=== PATIENT | male | born 1950 | race Caucasian/White ===

== ENCOUNTER → 2018-11-08 07:58 | Outpatient (BNVA) | payer MEDICARE, SELFPAY | PROVIDERS: PCP Internal Medicine; Visit Provider Urology | DX: N50.811 Right testicular pain (principal) | CPT/HCPCS: 99213 ==

== ENCOUNTER 2019-12-20 13:02 | Outpatient (REF) | payer MEDICARE, SELFPAY ==
[2019-12-22 09:17] LABS: PSA, Screening 1.3 ng/mL (0.0-4.5)
== END 2019-12-20 13:22 ==
LOC: NCHCN 13:02
PROVIDERS: PCP Internal Medicine; Visit Provider Internal Medicine
DX: Z12.5 Encounter for screening for malignant neoplasm of prostate (principal)
CPT/HCPCS: 84153

== ENCOUNTER 2020-10-05 15:25 | Outpatient (REF) | payer MEDICARE, SELFPAY ==
[2020-10-08 10:53] LABS: Lyme Ab w Rflx to Lyme Confirm Negative (Negative)
[2020-10-08 21:02] LABS: Anaplasma phagocytophilum Negative (Negative); B. miyamotoi PCR Negative (Negative); Babesia divergens/MO-1 Negative (Negative); Babesia duncani Negative (Negative); Babesia microti Negative (Negative); Ehrlichia chaffeensis Negative (Negative); Ehrlichia ewingii/canis Negative (Negative); Ehrlichia muris eauclairensis Negative (Negative)
== END 2020-10-05 15:26 | disposition home or self-care (01) ==
LOC: NCHCN 15:25
PROVIDERS: PCP Internal Medicine; Visit Provider Family Medicine
DX: W57.XXXA Bitten or stung by nonvenomous insect and other nonvenomous arthropods, initial encounter (principal); T14.8XXA Other injury of unspecified body region, initial encounter
CPT/HCPCS: 87798; 86618

== ENCOUNTER 2022-10-23 10:10 | Outpatient (REF) | payer MEDICARE, SELFPAY ==
--- NOTE | 2022-10-23 08:30 | SKI_PTH ---
PATIENT: Bob Mello LOC: [facility]#:[id number] AGE/SX: 72/M ROOM: RE10/23/[address]: Daniel Urena : 1950 BED: DIS: 10/23/2022 SPEC #: [id number] RECD: 10/23/22 16:50 STATUS: DONOVAN REQ #: [id number] REJI: 10/23/22 08:[address]: Daniel Urena DEPT: Surgical Specimen RECD BY: Deidre Monroe ENTERED: 10/23/22 16:51 SP TYPE: SKI OTHR DR: Dez Colin Tissues: 1 - SKIN BIOPSY(SHAVE/PUNCH) Procedures: SKIN LEVEL 4 Comments: [id number]
[2022-10-23 15:32] LABS: HCT 46.5 % (40.0-50.0); HGB 15.6 g/dL (13.5-17.5); MCH 31.1 pg (27.0-33.0); MCHC 33.5 % (32.0-36.0); MCV 93 fL (80-95); MPV 9.5 fL (8.0-11.0); Platelet Count 321 10^3/uL (130-400); RBC 5.01 10^6/uL (4.36-5.78); RDW-SD 44.1 fL; WBC 6.41 10^3/uL (4.4-10.8)
[2022-10-23 15:37] LABS: BUN 25 mg/dL (7-18); Calcium 9.2 mg/dL (8.5-10.1); Chloride 104 mmol/L (98-107); Estimated GFR 80.97 (mL/min/1.73m2); Glucose 100 mg/dL (74-106); Potassium 4.9 mmol/L (3.5-5.1); Sodium 139 mmol/L (136-145)
[2022-10-23 16:06] LABS: Hemoglobin A1C 5.6 % (<5.7)
== END 2022-10-23 10:11 | disposition home or self-care (01) ==
LOC: NCHCN 10:10
PROVIDERS: PCP Internal Medicine; Visit Provider Family Medicine
DX: Z00.00 Encounter for general adult medical examination without abnormal findings (principal); L57.0 Actinic keratosis
CPT/HCPCS: 80048; 85027; 83036; 88305

== ENCOUNTER → 2023-11-05 03:00 | Outpatient (CLI) | payer MEDICARE, SELFPAY ==
--- NOTE | 2023-11-05 | DI.RAD_ITS ---
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 TECHNIQUE: 2D digital imaging was performed. COMPARISON: No exams were available for comparison FINDINGS: Five views. No evidence of fracture, listhesis, nor offset of the spinal laminar line. There is multilevel disc space narrowing. There also appears to be fusion across C2-C3 level. Multi level facet arthrosis. Luschka joint osteophytes noted at C5-6 level, larger on the right than left. There are no cervical ribs. IMPRESSION: Multilevel chronic degenerative disc disease and facet arthropathy. No fractures evident. DATA REPOSITORY: RADIATION DOSE DELIVERED:
== END ==
PROVIDERS: PCP Internal Medicine; Visit Provider Family Medicine
DX: M50.122 Cervical disc disorder at C5-C6 level with radiculopathy (principal)
CPT/HCPCS: 72050

== ENCOUNTER 2024-06-30 02:49 | Outpatient (CLI) | payer MEDICARE, SELFPAY ==
--- NOTE | 2024-06-30 | DI.MRI_ITS ---
Exam(s) MR CERVICAL SPINE WO EXAM: MR CERVICAL SPINE WO CLINICAL HISTORY: Cervicalgia, M54.2 TECHNIQUE: Multiplanar multisequence MRI of the cervical spine was performed without intravenous con trast. COMPARISON: CR XR CERVICAL SPINE COMP 4-5V from 11/05/2023 FINDINGS: BONES: There are arthritic changes seen at the C1-C2 level causing mild narrowing of the central spin al canal. Multilevel degenerative changes are present throughout the cervical spine. The findings a re most marked at C4-5 through C6-C7. Alignment is normal. Bone marrow signal intensity is within nor mal limits. CERVICAL CORD: Craniovertebral junction is unremarkable. The cervical cord is normal size and signal intensity. SOFT TISSUES: There is a heterogeneous left lobe of the thyroid gland. There is a question of a 2.6 cm heterogeneous nodule in the left lobe. Nonemergent thyroid ultrasound is recommended for further evaluation. C2-3: No disc herniation or bulge is identified. No significant central spinal canal or neural forami nal stenosis. C3-4: There is mild prominence of the osteophyte disc complex at this level. There is a small centra l disc herniation no significant central spinal canal stenosis is seen. Degenerative changes of the facets are seen. No significant neural foraminal stenosis is present. C4-5: No disc herniation or bulge is identified. No significant central spinal canal or neural forami nal stenosis there are degenerative changes of the facets particularly on the left. C5-6: There is prominence of the osteophyte disc complex causing mild narrowing of the central spinal canal. Uncovertebral joint and facet arthropathy is present. This results in marked bilateral neur al foraminal stenosis. C6-7: There is mild prominence of the osteophyte disc complex. No significant narrowing of the centr al spinal canal is seen. There are degenerative changes of the facets seen bilaterally. The finding s result in moderate right and moderately severe left neural foraminal stenosis. C7-T1: No disc herniation or bulge is identified. No significant central spinal canal or neural valerie inal stenosis IMPRESSION: 1. Multilevel arthrosis of the cervical spine resulting in central spinal canal or neural foraminal s tenosis as described above. The findings are most marked at C5-6 and C6-C7. 2. Question of a 2.6 cm heterogeneous left thyroid nodule. Nonemergent thyroid ultrasound is recomme nded for further evaluation. Unexpected findings DATA REPOSITORY:
== END 2024-06-30 03:09 ==
LOC: DI 02:49
PROVIDERS: PCP Family Medicine; Visit Provider Family Medicine
DX: M48.062 Spinal stenosis, lumbar region with neurogenic claudication (principal)
CPT/HCPCS: 72141

== ENCOUNTER 2024-07-11 01:24 | Outpatient (CLI) | payer MEDICARE, SELFPAY ==
--- NOTE | 2024-07-11 | DI.US_ITS ---
Exam(s) US THYROID EXAM: US THYROID CLINICAL HISTORY: NONTOXIC SINGLE THYROID NODULE E04.1. TECHNIQUE: Ultrasound thyroid performed using standard protocol. COMPARISON: No exams were available for comparison FINDINGS: RIGHT THYROID LOBE: Measures 2.1 cm AP x 1.6 cm wide x 4.1 cm craniocaudal No significant nodules in the right lobe Nodule #2 Size: Measures cm Composition: Mixed cystic-solid- 1 point Echogenicity: Hypoechoic- 2 points Shape: Wider ISTHMUS: Normal thickness. There are no nodules in the isthmus. LEFT THYROID LOBE: Measures 3.8 cm AP x 2.0 wide x 4.5 cm craniocaudal Contains a solid nodule with characteristics as follows: Size: Nodule measures 3.7 x 3.6 x 2 cm Composition: Solid-2 points Echogenicity: Mildly hypoechoic-2 points Shape: Taller than wider in the transverse plane-3 points Margin: Irregular-2 points Echogenic Foci: Macro calcification-1 points Total points for this nodule: 10 ACR Ti-Rads Category: 5 Will require FNA LYMPH NODES: There is no significant adenopathy. IMPRESSION: 1. There is a solid 3.7 x 3.6 x 2 cm nodule in the right thyroid lobe as described above which is a T R 5 level nodule and ridge requires ultrasound-guided FNA. 2. No significant lymphadenopathy DATA REPOSITORY:
== END 2024-07-11 01:44 ==
LOC: DI 01:25
PROVIDERS: PCP Family Medicine; Visit Provider Family Medicine
DX: E04.1 Nontoxic single thyroid nodule (principal)
CPT/HCPCS: 76536

== ENCOUNTER 2024-11-07 12:11 | Outpatient (REF) | payer MEDICARE, SELFPAY ==
[2024-11-07 16:23] LABS: Anion Gap 7.5 mmol/L (3-11); BUN 27 mg/dL (7-18); CO2 26.5 mmol/L (21.0-32.0); CREATININE 1.1 mg/dL (0.70-1.30); Calcium 9.3 mg/dL (8.5-10.1); Chloride 105 mmol/L (98-107); Estimated GFR 71.32 (mL/min/1.73m2); Glucose 102 mg/dL (74-106); LDL CHOLESTEROL 131 mg/dL (<100); Potassium 4.8 mmol/L (3.5-5.1); Sodium 139 mmol/L (136-145)
== END 2024-11-07 12:12 | disposition home or self-care (01) ==
LOC: NCHCN 12:11
PROVIDERS: PCP Family Medicine; Visit Provider Family Medicine
DX: Z00.00 Encounter for general adult medical examination without abnormal findings (principal); K29.70 Gastritis, unspecified, without bleeding
CPT/HCPCS: 80048; 83721

== ENCOUNTER 2025-01-24 01:58 | Outpatient (CLI) | payer MEDICARE, SELFPAY ==
--- NOTE | 2025-01-24 | DI.US_ITS ---
Exam(s) US THYROID EXAM: US THYROID CLINICAL HISTORY: THYROID NODULE, E04.1. TECHNIQUE: Ultrasound thyroid performed using standard protocol. COMPARISON: US US THYROID from 07/11/2024 FINDINGS: ISTHMUS: 3.6 mm RIGHT LOBE: Size: 5.4 x 2.8 x 2.0 cm Echogenicity: Normal. Vascularity: Normal. Nodules: There are no nodule seen on the right to warrant FNA or follow-up. LEFT LOBE: Size: 6.7 x 4.6 x 2.3 cm Echogenicity: Normal. Vascularity: Normal. Nodules: There is again seen a solid isoechoic nodule in the inferior left lobe. It measures 4.1 x 3.8 x 2.4 cm. This compares to 3.7 x 3.6 x 2.1 cm on the prior examination. It is taller than wide. The margins are irregular. A macrocalcification is present. This remains a TI rads level 5 nodule. Per the patient, this nodule has already been biopsied. OTHER FINDINGS: None. IMPRESSION: Stable nodule in the left lobe. Per the patient, this nodule has been biopsied previously. DATA REPOSITORY:
== END 2025-01-24 02:18 ==
LOC: DI 01:58
PROVIDERS: PCP Family Medicine; Visit Provider Family Medicine
DX: E04.1 Nontoxic single thyroid nodule (principal)
CPT/HCPCS: 76536

== ENCOUNTER 2025-03-13 14:42 | Outpatient (REF) | payer MEDICARE, SELFPAY ==
[2025-03-13 14:51] LABS: Abs Immature Grans 0.03 10^3/uL (0.0-0.06); HCT 43.2 % (40.0-50.0); HGB 14.4 g/dL (13.5-17.5); Immature Grans % 0.4 %; MCH 30.8 pg (27.0-33.0); MCHC 33.3 % (32.0-36.0); MCV 93 fL (80-95); MPV 9.5 fL (8.0-11.0); Platelet Count 305 10^3/uL (130-400); RBC 4.67 10^6/uL (4.36-5.78); RDW 12.3 % (11.8-14.1); RDW-SD 41.8 fL; WBC 6.78 10^3/uL (4.4-10.8)
[2025-03-13 15:09] LABS: Anion Gap 7.0 mmol/L (3-11); BUN 25 mg/dL (7-18); CO2 26.0 mmol/L (21.0-32.0); Calcium 9.7 mg/dL (8.5-10.1); Chloride 106 mmol/L (98-107); Estimated GFR 93.45 (mL/min/1.73m2); Glucose 114 mg/dL (74-106); Potassium 4.2 mmol/L (3.5-5.1); Sodium 139 mmol/L (136-145)
== END 2025-03-13 14:43 | disposition home or self-care (01) ==
LOC: NCHCN 14:42
PROVIDERS: PCP Family Medicine; Visit Provider Family Medicine
DX: Z79.899 Other long term (current) drug therapy (principal)
CPT/HCPCS: 80048; 85025